=== PATIENT | female | born 1975 | race Caucasian/White ===

== ENCOUNTER 2020-12-01 17:03 | Emergency (ER) | payer BC ==
--- NOTE | 2020-12-01 17:22 | EDM.PDOC ---
ED HPI GENERAL MEDICAL PROBLEM - General Chief Complaint: Gastrointestinal Problem Stated Complaint: vomiting Time Seen by Provider: 12/01/20 17:10 Source of Information: Reports: Patient, Family History Limitations: Reports: No Limitations - History of Present Illness INITIAL COMMENTS - FREE TEXT/NARRATIVE: Reina is a 45 year old female who presents to ER with complaints of vomiting since 0200. She has been unable to even take small amounts of liquids as she will retch. Mild diarrhea. Abdomen is sore. No fevers that she is aware of. Feels discomfort that starts in her midepigastric area that radiates up through her chest. Has discomfort to the right flank area as well. No chest pain, shortness of breath or cough. Denies sinus congestion, ear pain or a sore thr oat. relates that she had considerable vomiting with each and after the last one, had persistent vomiting and burning in her abdomen. Thought possibly related to her gallbladder so removed that but did not get better. Ultimately had an EGD, found an ulcer and had to have the esophagus dilated. Denies noting any blood in her emesis. Onset: Today Duration: Hour(s):, Constant Location: Reports: Abdomen Quality: Reports: Burning Severity: Moderate Improves with: Reports: None Worsens with: Reports: Eating Associated Symptoms: Reports: Malaise, Nausea/Vomiting, Weakness. Denies: Confusion, Chest Pain, Cough, Fever/Chills, Loss of Appetite, Shortness of Breath - Related Data Allergies Allergy/AdvReac Type Severity Reaction Status Date / Time tetanus and diphtheria Allergy Hives Verified 12/01/20 17:41 toxoids Home Meds: Home Meds . 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 Denies: Fever HEENT: Denies: Ear Pain, Sinus Problem, Throat Pain Respiratory: Denies: Shortness of Breath, Cough Cardiovascular: Reports: Lightheadedness. Denies: Chest Pain, Edema Endocrine: Reports: Fatigue GI/Abdominal: Reports: Abdominal Pain, Diarrhea, Decreased Appetite, Nausea, Vomiting : Reports: No Symptoms Musculoskeletal: Reports: No Symptoms Skin: Reports: Pallor Neurological: Reports: Weakness ED EXAM, GI/ABD - Physical Exam Exam: See Below Exam Limited By: No Limitations General Appearance: Alert, WD/WN, Mild Distress Ears: Normal External Exam, Normal TMs Nose: Normal Inspection, Normal Mucosa, No Blood Throat/Mouth: Normal Inspection, Normal Oropharynx Head: Normocephalic Neck: Normal Inspection, Supple, Non-Tender Respiratory/Chest: No Respiratory Distress, Lungs Clear, Normal Breath Sounds Cardiovascular: Regular Rate, Rhythm GI/Abdominal Exam: Normal Bowel Sounds, Soft, Tender (diffusely throughout) Extremities: Normal Inspection, No Pedal Edema Neurological: Oriented, Other (sleepy) Skin Exam: Warm, Dry Course - Vital Signs Last Recorded V/S: Last Vital Signs Temp 98.6 F 12/01/20 17:05 Pulse 85 12/01/20 17:05 Resp 16 12/01/20 17:05 BP 115/70 12/01/20 17:05 Pulse Ox 99 12/01/20 17:05 - Orders/Labs/Meds Labs: Laboratory Tests 12/01/20 12/01/20 12/01/20 Range/Units 17:12 17:12 17:41 WBC 8.8 (4.0-10.0) x10^3/uL RBC 4.35 (4.00-5.50) x10^6/uL Hgb 13.5 (12.0-16.0) g/dL Hct 38.7 (33.0-47.0) % MCV 89.0 (78.0-93.0) fL MCH 31.0 (26.0-32.0) pg MCHC 34.9 (32.0-36.0) g/dL RDW Coeff of Franklyn 12.6 (10.0-15.0) % Plt Count 171 (130-400) x10^3/uL Immature Gran % (Auto) 0.10 (0.00-0.43) % Neut % (Auto) 95.0 H (50.0-80.0) % Lymph % (Auto) 1.7 L (25.0-50.0) % Lamar % (Auto) 3.1 (2.0-11.0) % Eos % (Auto) 0.0 (0.0-4.0) % Baso % (Auto) 0.1 L (0.2-1.2) % Neut # (Auto) 8.4 H (1.8-7.7) x10^3/uL Lymph # (Auto) 0.2 L (1.0-4.8) x10^3/uL Lamar # (Auto) 0.3 (0.0-0.8) x10^3/uL Eos # (Auto) 0.0 (0.0-0.5) x10^3/uL Baso # (Auto) 0.0 (0.0-0.2) x10^3/uL Immature Gran # (Auto) 0.01 (0.00-0.07) x10^3/uL Sodium 136 (136-145) mmol/L Potassium 4.0 (3.5-5.1) mmol/L Chloride 102 (98-107) mmol/L Carbon Dioxide 24 (21-32) mmol/L Anion Gap 14.0 (5-15) mmol/L BUN 16 (7-18) mg/dL Creatinine 0.6 (0.55-1.02) mg/dL Est Cr Clr Drug Dosing TNP Estimated GFR (MDRD) > 60 Glucose 114 H (70-99) mg/dL Calcium 8.7 (8.5-10.1) mg/dL Corrected Calcium 8.8 (8.5-10.1) mg/dL Total Bilirubin 0.5 (0.2-1.0) mg/dL AST 20 (15-37) U/L ALT 21 (14-59) U/L Alkaline Phosphatase 63 (46-116) U/L C-Reactive Protein 3.6 H (<=0.9) mg/dL Total Protein 7.2 (6.4-8.2) g/dL Albumin 3.9 (3.4-5.0) g/dL Globulin 3.3 Albumin/Globulin Ratio 1.18 Amylase 42 (25-115) U/L Lipase 105 (73-393) U/L Urine Color (YELLOW) Urine Appearance (CLEAR) Urine pH (5.0-8.0) Ur Specific Maple Urine Protein (NEGATIVE) mg/dL Urine Glucose (UA) (NEGATIVE) mg/dL Urine Ketones (NEGATIVE) mg/dL Urine Occult Blood (NEGATIVE) Urine Nitrite (NEGATIVE) Urine Bilirubin (NEGATIVE) Urine Urobilinogen (0.2) EU/dL Ur Leukocyte Esterase (NEGATIVE) Urine RBC (NOT SEEN) /HPF Urine WBC (NOT SEEN) /HPF Ur Squamous Epith Cells (NOT SEEN) /HPF Urine Bacteria (NOT SEEN) /HPF Urine Mucus (NOT SEEN) /LPF SARS CoV-2 RNA Rapid MACARENA Negative (NEGATIVE) 12/01/20 Range/Units 18:52 WBC (4.0-10.0) x10^3/uL RBC (4.00-5.50) x10^6/uL Hgb (12.0-16.0) g/dL Hct (33.0-47.0) % MCV (78.0-93.0) fL MCH (26.0-32.0) pg MCHC (32.0-36.0) g/dL RDW Coeff of Franklyn (10.0-15.0) % Plt Count (130-400) x10^3/uL Immature Gran % (Auto) (0.00-0.43) % Neut % (Auto) (50.0-80.0) % Lymph % (Auto) (25.0-50.0) % Lamar % (Auto) (2.0-11.0) % Eos % (Auto) (0.0-4.0) % Baso % (Auto) (0.2-1.2) % Neut # (Auto) (1.8-7.7) x10^3/uL Lymph # (Auto) (1.0-4.8) x10^3/uL Lamar # (Auto) (0.0-0.8) x10^3/uL Eos # (Auto) (0.0-0.5) x10^3/uL Baso # (Auto) (0.0-0.2) x10^3/uL Immature Gran # (Auto) (0.00-0.07) x10^3/uL Sodium (136-145) mmol/L Potassium (3.5-5.1) mmol/L Chloride (98-107) mmol/L Carbon Dioxide (21-32) mmol/L Anion Gap (5-15) mmol/L BUN (7-18) mg/dL Creatinine (0.55-1.02) mg/dL Est Cr Clr Drug Dosing Estimated GFR (MDRD) Glucose (70-99) mg/dL Calcium (8.5-10.1) mg/dL Corrected Calcium (8.5-10.1) mg/dL Total Bilirubin (0.2-1.0) mg/dL AST (15-37) U/L ALT (14-59) U/L Alkaline Phosphatase (46-116) U/L C-Reactive Protein (<=0.9) mg/dL Total Protein (6.4-8.2) g/dL Albumin (3.4-5.0) g/dL Globulin Albumin/Globulin Ratio Amylase (25-115) U/L Lipase (73-393) U/L Urine Color Yellow (YELLOW) Urine Appearance Clear (CLEAR) Urine pH 5.5 (5.0-8.0) Ur Specific Maple >=1.030 Urine Protein Negative (NEGATIVE) mg/dL Urine Glucose (UA) Negative (NEGATIVE) mg/dL Urine Ketones >=160 H (NEGATIVE) mg/dL Urine Occult Blood Trace-lysed H (NEGATIVE) Urine Nitrite Negative (NEGATIVE) Urine Bilirubin Small H (NEGATIVE) Urine Urobilinogen 0.2 (0.2) EU/dL Ur Leukocyte Esterase Negative (NEGATIVE) Urine RBC 0-5 (NOT SEEN) /HPF Urine WBC 0-5 (NOT SEEN) /HPF Ur Squamous Epith Cells Rare (NOT SEEN) /HPF Urine Bacteria Rare (NOT SEEN) /HPF Urine Mucus Not seen (NOT SEEN) /LPF SARS CoV-2 RNA Rapid MACARENA (NEGATIVE) Meds: Medications Discontinued Medications Generic Name Dose Route Start Last Admin Trade Name Freq PRN Reason Stop Dose Admin Sodium Chloride 1,000 mls @ 999 mls/hr 12/01/20 17:29 12/01/20 17:18 Normal Saline IV 12/01/20 18:29 999 mls/hr ONETIME ONE Administration Ondansetron HCl 4 mg 12/01/20 17:29 12/01/20 17:36 Ondansetron 4 Mg/2 Ml Sdv IVPUSH 12/01/20 17:30 4 mg ONETIME ONE Administration Ondansetron HCl 1 packet 12/01/20 19:13 Take Home: Ondansetron 4 Mg Tab.Dis, 2 Tab Pack PO 12/01/20 19:14 ONETIME ONE Pantoprazole Sodium 40 mg 12/01/20 17:27 12/01/20 17:38 Pantoprazole 40 Mg Vial IVPUSH 12/01/20 17:28 40 mg ONETIME ONE Administration - Re-Assessments/Exams Free Text/Narrative Re-Assessment/Exam: 12/01/20 18:29 patient is feeling better, states less nauseated. Abdomen is sore. Relates that the areas behind her esophagus does feel like in past experience when she had the ulcers. Did take Protonix twice a day for some time, switched to Dexilant but her insurance would not cover that medicine despite it working better for her. Does feel she could be discharged home with oral meds, Zofran. Will need further investigation of this if does not see improvement. 12/01/20 18:32 Waiting on urine. 12/01/20 19:15 UA negative Departure - Departure Time of Disposition: 19:15 Disposition: Home, Self-Care 01 Condition: Fair Clinical Impression: Vomiting - Discharge Information *PRESCRIPTION DRUG MONITORING PROGRAM REVIEWED*: No *COPY OF PRESCRIPTION DRUG MONITORING REPORT IN PATIENT JACOBO: No Instructions: Nausea and Vomiting, Adult, [id number] Referrals: PCP,Unobtain [Primary Care Provider] - Forms: ED Department Discharge Additional Instructions: 1. Clear liquids. Advance as able to tolerate in small amounts 2. Zofran 4 mg every 6 hours as needed for nausea or vomiting 3. Protonix 40 mg daily 4. If symptoms persist or worsen, follow up with primary care provider for further testing. 5. Call with any questions or concerns. Sepsis Event Note (ED) - Focused Exam Vital Signs: Vital Signs Temp Pulse Resp BP Pulse Ox 12/01/20 17:05 98.6 F 85 16 115/70 99
[2020-12-01] MEDS ORDERED: Pantoprazole 40 MG Vial IVPUSH ONE (17:27)
[2020-12-01] MEDS ORDERED: Ondansetron 4 MG/2 ML SDV IVPUSH ONE (17:29)
[2020-12-01] MEDS ORDERED: Sodium Chloride 0.9% 1,000 ML IV ONE ×2 (17:29→18:05)
[2020-12-01 17:42] LABS: CHLORIDE,CL 102 mmol/L (98-107); SODIUM,NA 136 mmol/L (136-145)
[2020-12-01] MEDS ORDERED: Take Home: Ondansetron 4 MG Tab.DIS, 2 Tab Pack PO ONE (19:13)
== END 2020-12-01 19:25 | disposition home or self-care (01) ==
LOC: VM.ED 17:03
DX: R11.10 Vomiting, unspecified (principal); Z88.7 Allergy status to serum and vaccine; Z20.822 Contact with and (suspected) exposure to COVID-19
CPT/HCPCS: 80053; 81001; 82150; 83690; 85025; 86140; 87635; 96374; 96375; 99284; A9270; C9113; J2405; J7030; 99283; U0002